=== PATIENT | female | born 1980 | race Caucasian/White ===

== ENCOUNTER 2017-09-13 09:17 | Emergency (ER) | payer OTHER ==
[~2017-09-13] VITALS: Ht 175.3 cm; Wt 88.0 kg
[2017-09-13 09:21] VITALS: BP 142/49
[2017-09-13] MEDS ORDERED: HYDROcodone/APAP 5/325 MG 1 TAB TAB PO ONE (09:35)
[2017-09-13 10:13] VITALS: BP 140/52
[2017-09-13 11:28] LABS: BARBITURATE, URINE NEG. ng/ml (NEG <=200); BENZODIAZEPINE, URINE NEG. ng/mL (NEG <=200); CANNABINOID, URINE NEG. ng/mL (NEG <=50); COCAINE, URINE NEG. ng/mL (NEG <=300); OPIATE, URINE NEG. ng/mL (NEG <=2000); PHENCYCLIDINE SCREEN,URINE NEG. ng/mL (NEG <=25)
== END 2017-09-13 10:13 | disposition home or self-care (01) ==
LOC: MED 09:17
DX: S93.402A Sprain of unspecified ligament of left ankle, initial encounter (principal); Z88.8 Allergy status to other drugs, medicaments and biological substances; X58.XXXA Exposure to other specified factors, initial encounter; Y93.89 Activity, other specified; Y92.89 Other specified places as the place of occurrence of the external cause; Y99.8 Other external cause status
CPT/HCPCS: 73610; 73630; 80305; 81025; 99285

== ENCOUNTER 2020-02-20 15:31 | Emergency (ER) | payer MEDICAID, MEDICARE ==
[~2020-02-20] VITALS: Ht 175.3 cm; Wt 84.4 kg
[2020-02-20 15:56] VITALS: BP 129/74
--- NOTE | 2020-02-20 16:02 | NUR ---
WAIT AT LOBBY. HANDED ON URINE CUP.
--- NOTE | 2020-02-20 18:40 | NUR ---
PATIENT LEFT WITHOUT BEING SEEN BY DR. KOTHARI. NO FURTHER CARE PROVIDED FOR PATIENT.
== END 2020-02-20 18:40 | disposition left against medical advice (07) ==
LOC: MED 15:31
DX: M54.5 Low back pain (principal); Z53.21 Procedure and treatment not carried out due to patient leaving prior to being seen by health care provider

== ENCOUNTER 2023-06-07 20:01 | Emergency (ER) | payer MEDICAID ==
[~2023-06-07] VITALS: Ht 175.3 cm; Wt 87.1 kg
[2023-06-07 20:04] VITALS: BP 129/35; PULSE 74; RESP 18; TEMP 98; O2SAT 99
[2023-06-07] MEDS ORDERED: METH-1681 PO (20:45)
[2023-06-07] MEDS: HYDROcodone/APAP 5/325 MG 1 TAB TAB PO ONE (20:56)
[2023-06-07 20:57] VITALS: BP 129/35; PULSE 74; RESP 18; TEMP 98; O2SAT 99
== END 2023-06-07 20:56 | disposition home or self-care (01) ==
LOC: MED 20:01
DX: S39.012A Strain of muscle, fascia and tendon of lower back, initial encounter (principal); Z79.899 Other long term (current) drug therapy; X58.XXXA Exposure to other specified factors, initial encounter; Y93.89 Activity, other specified; Y92.89 Other specified places as the place of occurrence of the external cause; Y99.8 Other external cause status
CPT/HCPCS: 99283